=== PATIENT | female | born 1960 | race Caucasian/White ===

== ENCOUNTER 2022-12-16 07:29 | Outpatient (CLI) | payer BC, SELFPAY ==
[2022-12-16 08:00] LABS: Creatinine* 0.6 mg/dL (0.5-1.5); Estimated Glomerular Filt Rate 103 ml/min
--- NOTE | 2022-12-16 08:00 | CRLHL7_ITS ---
For Patients: As a result of the Century Cures Act, medical imaging exams and procedure reports are released immediately into your electronic medical record. You may view this report before your referring provider. If you have questions, please contact your health care provider. Indication: RIGHT LOWER ABDOMEN PAIN Technique: Postcontrast CT abdomen and pelvis. 86 cc Isovue 370 intravenous contrast. Oral water. Please note that all CT scans at this facility use dose modulation, iterative reconstruction, and/or weight-based dosing when appropriate to reduce radiation dose to as low as reasonably achievable. Comparison: None Findings: Lung bases are clear. No pleural effusion. There is fatty infiltration of the liver. Mildly prominent gastroesophageal junction lymph node is present measuring 9 millimeters. Mildly prominent upper retroperitoneal lymph nodes are also present, measuring 1 centimeter or less. The spleen is within normal limits without enlargement and measures 11.5 cm. There is some nodularity of the hepatic contour with diffuse low attenuation. There are 2 small hypodensities within the liver measuring 9 millimeters, series 6, image 30 and 6 millimeters, series 6, image 29. Mild ascites is present surrounding the liver extending along the right lateral conal fascia. Moderate pelvic ascites is present. There is no pelvic soft tissue mass. No mechanical bowel obstruction. No evidence of acute diverticulitis. The terminal ileum appears normal. The bladder is normal. Mild ascites also present within the anterior aspect of the left lower quadrant. The stomach is normal. No evidence of enteritis. No dilated small bowel loops. Adrenal glands normal. Normal kidneys. No hydronephrosis. Atherosclerotic disease. Degenerative disc disease L4-5. Facet degeneration L5-S1. No fracture. No gallstones are present. There is no biliary obstruction. Mild pericholecystic fluid. Impression: Cirrhotic liver with mild upper abdominal ascites and moderate pelvic ascites. Mild incidental fluid surrounds the gallbladder. No evidence of acute gallbladder disease. Numerous mildly prominent upper retroperitoneal lymph nodes extending to the GE junction consistent with reactive adenopathy. There are 2 small hypodensities within the liver which are likely benign but indeterminate in the setting of chronic liver disease and therefore dynamic pre and postcontrast MRI is recommended. Please note that all CT scans at this facility use dose modulation, iterative reconstruction, and/or weight-based dosing when appropriate to reduce radiation dose to as low as reasonably achievable. Dictated by Tien Stout MD @ 12/16/2022 11:48:37 AM (Electronically Signed)
== END 2022-12-16 07:30 | disposition home or self-care (01) ==
PROVIDERS: PCP Family Medicine; Visit Provider Internal Medicine
DX: R10.31 Right lower quadrant pain (principal); K74.60 Unspecified cirrhosis of liver; R18.8 Other ascites
CPT/HCPCS: 36415; 74177; 82565; Q9967

== ENCOUNTER 2022-12-19 15:47 | Outpatient (CLI) | payer BC, SELFPAY ==
[2022-12-19 17:41] LABS: Alanine Aminotransferase* 315 U/L (4-35); Alkaline Phosphatase* 216 U/L (40-150); Aspartate Amino Transferase* 666 U/L (12-35); Bilirubin Total* 3.4 mg/dL (0.1-1.5); Total Protein* 7.5 g/dL (6.0-8.3)
[2022-12-19 18:11] LABS: Hepatitis B Surface Antigen* Negative (Negative)
[2022-12-19 18:28] LABS: Hepatitis C Virus Antibody* Negative (Negative)
[2022-12-19 23:12] LABS: Hepatitis B Surface Antibody* Positive (Negative)
[2022-12-21 20:48] LABS: Ceruloplasmin 25 mg/dL (16-45); Hepatitis B Core Antibodies Negative (Negative)
[2022-12-22 16:53] LABS: Anti-Nuclear Ab(ANA)IgG ELISA Detected (None Detected)
[2022-12-24 01:03] LABS: ANA Pattern Homogeneous; Antinuclear AntibodyHEp-2 Detected (<1:80)
== END 2022-12-19 15:48 | disposition home or self-care (01) ==
PROVIDERS: PCP Family Medicine; Visit Provider Internal Medicine
DX: K74.60 Unspecified cirrhosis of liver (principal); R18.8 Other ascites
CPT/HCPCS: 80076; 82390; 83516; 86039; 86256; 86704; 86706; 86803; 87340

== ENCOUNTER 2023-01-01 07:03 | Outpatient (CLI) | payer BC, SELFPAY ==
--- NOTE | 2023-01-01 07:15 | CRLHL7_ITS ---
For Patients: As a result of the Century Cures Act, medical imaging exams and procedure reports are released immediately into your electronic medical record. You may view this report before your referring provider. If you have questions, please contact your health care provider. INDICATION: Cirrhosis and 2 small hypodense liver lesions on CT. TECHNIQUE: Multiplanar imaging of the abdomen was performed without and with 15 cc of Dotarem contrast material IV. COMPARISON: Abdomen/pelvis CT of 12/16/2022. Of FINDINGS: The liver is cirrhotic. No liver neoplasm is apparent. A 9 mm cyst is demonstrated in liver segment 4B and a 3 mm cyst is demonstrated in segment 3. These correspond to the low-attenuation lesions seen on CT. The portal vein is patent and demonstrates no filling defect. No portosystemic collateral vein is evident. The spleen is negative. A small amount of ascites is again demonstrated. The gallbladder is hydropic. No bile duct dilation is evident. The adrenal glands and pancreas are within normal limits. The kidneys are unremarkable except for an 8 mm left renal cyst. No lymphadenopathy is apparent. No intrinsic bowel abnormality is evident. IMPRESSION: 1. Cirrhotic liver without evidence of hepatocellular carcinoma. Two subcentimeter cysts noted. 2. Small volume ascites. Dictated by Branden Solo MD @ 01/02/2023 1:44:22 PM (Electronically Signed)
== END 2023-01-01 07:04 | disposition home or self-care (01) ==
LOC: MRI 07:04
PROVIDERS: PCP Family Medicine; Visit Provider Internal Medicine
DX: K74.60 Unspecified cirrhosis of liver (principal); K76.9 Liver disease, unspecified; R18.8 Other ascites; R16.0 Hepatomegaly, not elsewhere classified
CPT/HCPCS: 74183; A9575

== ENCOUNTER 2024-05-17 10:56 | Outpatient (CLI) | payer BC, SELFPAY ==
--- OUTSIDE RECORDS SUMMARY | 2024-05-17 10:58 | XMS_ITS | Encounter Summary ---
Author Organization [facility] Address [address] [place] [id number] Care Team Providers [place] [facility] Name Role Phone Unavailable Primary Care Provider Unavailabl e Reason for Referral * Outpatient (Routine) - Authorized Specialty Diagnoses / Procedures Referred By Contact Referred To Contact Gastroenterology and Hepatology Radha Gomez M.D. [address] [place] [address] [facility] Referral ID Status Reason Start Date Expiration Date V isits Requested Visits Authorized [id number] Authorized 04/01/2024 10/01/2025 1 1 * Outpatient (Routine) - Authorized Specialty Diagnoses / Procedures Referred By Contac t Referred To Contact Diagnoses Hepatitis Autoimmune (HCC) Procedures US Abdomen Complete Radha Gomez M.D. [address] [place] [address] [facility] Referral ID Status Reason Start Date Expiration Date V isits Requested Visits Authorized [id number] Authorized 04/01/2024 04/01/2025 1 1 * Outpatient (Routine) - Authorized Specialty Diagnoses / Procedures Referred By Contac t Referred To Contact Dermatology Diagnoses Hepatitis Autoimmune (HCC) Radha Gomez M.D. [address] [place] [phone] [facility] Referral ID Status Reason Start Date Expiration Date V isits Requested Visits Authorized [id number] Authorized 04/01/2024 10/01/2025 1 1 Reason for Visit * Outpatient (Routine) - Closed Specialty Diagnoses / Procedures Referred By Contact Referred To Contact Gastroenterology and Hepatology Radha Gomez M.D. [address] [place] [address] [facility] Referral ID Status Reason Start Date Expiration Date Visits Re quested Visits Authorized [id number] Closed 08/22/2023 08/21/2026 1 1 Encounter Details Date Type Department Care Team (Latest Contact Info) Description 04/01/2024 4:20 PM CDT Virtual Visit Division of Gastroenterology in [place], [place] [address] [place] [phone] Radha Gomez M.D. [address] [place] [phone] Hepatitis Autoimmune (HCC) (Primary Dx); Unspecified Cirrhosis Of Liver (HCC) Social History Tobacco Use Types Packs/Day Years Used Date Smoking Tobacco: Every Day Cigarettes 0.8 40 Started: 11/10/1979; Last attempted to quit: 11/10/2000 Passive Smoke Exposure: Current Smokeless Tobacco: Never Alcohol Use Standard Drinks/Week Comments Yes 8 (1 standard drink = 0.6 oz pur e alcohol) Humiliation, Afraid, Rape, and Kick questionnair e Answer Date Recorded Within the last year, have y ou been afraid of your partner or ex-partner? No 01/30/2023 Within the last year, have y ou been humiliated or emotionally abused in other ways by your partner or ex-partner? No Within the last year, have y ou been kicked, hit, slapped, or otherwise physically hurt by your partner or ex-partner? No 01/30/2023 Within the last year, have y ou been raped or forced to have any kind of sexual activity by your partner or ex-partner? No 01/30/2023 Social Connection and Isolation Panel [NHANES] A nswer Date Recorded In a typical week, how many times do you talk on the phone with family, friends, or neighbors? Three times a week 01/31/20 How often do you get togethe r with friends or relatives? Three times a week 01/30/2023 How often do you attend chur or presybeterian services? 1 to 4 times per year 01/30/2023 Do you belong to any clubs o r organizations such as voodoo groups, unions, fraternal or athletic groups, or school groups? No 01/30/2023 Attends Club or Organization Meetings Not on carter e 01/30/2023 Are you , , di vorced, , never , or living with a partner? 01/30/2023 AUDIT-C Answer Date Recorded Q1: How often do you have a drink containing alc ohol? 2-3 times a week 01/30/2023 Q2: How many drinks containi ng alcohol do you have on a typical day when you are drinking? 3 or 4 01/30/2023 Q3: How often do you have si x or more drinks on one occasion? Monthly 01/30/2023 Overall Financial Resource Strain (CARDIA) Answe r Date Recorded How hard is it for you to pa y for the very basics like food, housing, medical care, and heating? Not very hard 01/30/2023 [facility] - Occupational Stress Questionnaire Answer Date Recorded Do you feel stress - tense, restless, nervous, or anxious, or unable to sleep at night because your mind is troubled all the time - these days? Very much 01/30/2023 Exercise Vital Sign Answer Date Recorde d On average, how many days pe r week do you engage in moderate to strenuous exercise (like a brisk walk)? 1 day 01/30/2023 On average, how many minutes do you engage in exercise at this level? 20 min 01/30/2023 Hunger Vital Sign Answer Date Recorded Within the past 12 months, y ou worried that your food would run out before you got the money to buy more. Never true 01/31/20 Within the past 12 months, t he food you bought just didn't last and you didn't have money to get more. Never true 01/30/2023 PRAPARE - Transportation Answer Date Re corded In the past 12 months, has l ack of transportation kept you from medical appointments or from getting medications? No 01/09 In the past 12 months, has l ack of transportation kept you from meetings, work, or from getting things needed for daily living? No 01/30/2023 Housing Stability Vital Sign Answer Shashank e Recorded In the last 12 months, was t here a time when you were not able to pay the mortgage or rent on time? No 01/30/2023 In the last 12 months, how many places have you lived? 2 01/30/2023 In the last 12 months, was t here a time when you did not have a steady place to sleep or slept in a halfway (including now)? No 01/30/2023 Nutrition Answer Date Recorded Nutrition: EVOO Fat Source No 01/30 On average, how many serving s of fruits and vegetables do you eat per day (serving size is equal to 1 cup or approximately the size of a tennis ball)? 0-1 01/30/2023 Dental Answer Date Recorded Dental: Regular Dentist No 01/31/20 Employment Answer Date Recorded Employment status Retired 01/30/2023 Education Answer Date Recorded What is the highest level of school you have completed or the highest degree you have received? Associate degree: occupational, technical, or vocational program 01/30/2023 Sex and Gender Information Value Date Recorded Sex Assigned at Female 01/30/2023 1:08 PM CDT Gender Identity Female 01/30/2023 1:08 PM CDT Sexual Orientation Straight 01/30/2023 1: 08 PM CDT documented as of this encounter Progress Notes * Radha Gomez M.D. - 04/01/2024 4:20 PM CDT GASTROENTEROLOGY & HEPATOBILIARY CONSULT Chief Concern/Reason for Consult: Cirrhosis Referring Physician: Radha Gomez M.D. Supervised by: Ayden Dennison M.D., M.P.H SUBJECTIVE Consult conducted via real-time audio/video technology by Radha Gomez M.D. in [facility] to the patient in [facility]. Gloria Lincoln is a 64 y.o. female who returns for management of cirrhosis in the context of autoimmune hepatitis with possible ETOH use as a cofactor. She was titrated off prednisone in November 2023. She remains on azathioprine 50 mg daily as monotherapy. EGD on 05/01/2023 demonstrated grade 2 esophageal varices, portal hypertensive gastropathy, erosivegastropathy. She was initiated on carvedilol. Laboratory investigations from 03/31/2024 demonstrated AST 68, ALT 15. Alkaline phosphatase 82. Creatinine and electrolytes are within normal limits. CBC is normal. Laboratory investigations 04/18/2023 showed ALP 98, AST 62, ALT 33 and total bilirubin 0.8. Ultrasound of the liver without concerning hepatic observations. LI-RADS 1A. Today, Ms. Lincoln reports that she is feeling well without complaints. I have reviewed all laboratory values and diagnostics relevant to this consultation. 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 Gloria Lincoln is a 64 y.o. female who presents for follow-up of cirrhosis secondary to autoimmune hepatitis with EtOH as a cofactor. We discussed the following: Reviewed the results of her recent laboratory investigations. Which demonstrated in AST > ALT elevation at 2:1 pattern. I suspect this is less likely related to her autoimmune hepatitis and more likely related to ongoing EtOH use. Advised cessation. Reviewed the results of her abdominal ultrasound complete. This was negative for any concerning observations. I have recommended she continue HCC screening on a six-month basis with abdominal ultrasound complete and alpha fetoprotein. For esophageal varices, she will continue on carvedilol. For her autoimmune hepatitis directed therapy, she will continue on azathioprine 50 mg daily. Laboratory monitoring - we will repeat hepatic function and CBC in 3 months. If stable, we will space these checks out to every 6 months. I have advised that she continues to keep up-to-date on her immunizations with her PCP. Radha Gomez M.D. Gastroenterology & Hepatology Fellow Pager #[phone] Patient Education Ready to learn, no apparent learning barriers were identified; learning preferences include listening. Explained diagnosis and treatment plan; patient expressed understanding of the content. Administrative/Billing I spent 25 minutes face to face and non-face to face caring for the patient today. documented in this encounter Plan of Treatment Upcoming Encounters Date Type Department Care Team (Latest Contact Info) Description 06/23/2024 8:00 AM CDT Appointment Division of Gastroenterology in [place], [place] [address] [place] [address] Radha Gomez M.D. [address] [place] [address] 06/23/2024 2:15 PM CDT Comprehensive Visit Department of Dermatology in [place], [place] [address] [place] [address] Radha Gomez M.D. [address] [place] [address] Scheduled Orders Name Type Priority Associated Diagnoses Order Schedule CBC without Differential Lab Routine Hepatitis Autoimmune (HCC) Expected: 10/02/2024, Expires: 07/02/2025 Basic Metabolic Panel Lab Routine Hepatitis Autoimmune (HCC) Expected: 10/02/2024, Expires: 07/02/2025 Hepatic Function Panel Lab Routine Hepatitis Autoimmune (HCC) Expected: 10/02/2024, Expires: 07/02/2025 US Abdomen Complete Imaging RAD - Routin e (most inpatients and all outpatients) Hepatitis Autoimmune (HCC) Expected: 10/02/2024, Expires: 07/02/2025 AFP (Alpha-Fetoprotein), Tumor Marker Lab Routine Hepatitis Autoimmune (HCC) Expected: 10/02/2024, Expires: 07/02/2025 Scheduled Referrals Name Type Priority Associated Diagnoses Order Schedule Dermatology - Skin check consult (clinic) Outpatient Referral Routine Hepatitis Autoimmune (HCC) Expected: 04/01/2024, Expires: 07/02/2025 Gastroenterology and Hepatology office visit (clinic) Outpatient Referral Routine Expected: 10/02/2024, Expires: 07/02/2025 documented as of this encounter Visit Diagnoses Diagnosis Hepatitis Autoimmune (HCC)- Primary Unspecified Cirrhosis Of Liver (HCC) documented in this encounter
--- OUTSIDE RECORDS SUMMARY | 2024-05-17 10:58 | XMS_ITS | Clinical Summary ---
Author Organization [facility] Address [address] [place] [address] Care Team Providers Care Infirmary Attendant Name Role Phone Unavailable Primary Care Provider Unavailabl e Source Comments Patient records contain information from all sites at [facility]. For routine questions regarding patient records, call [phone] during business hours, M-F 8:00 AM - 5:00 PM Central Time. Record requests for emergency care only can be directed to [phone] at any time.[facility] Allergies No known active allergies Medications Medication Sig Dispensed Refills Start Date End Date Status aspirin [address] tablet Active cetirizine 10 mg capsule Active cholecalciferol, vitamin D3, (Vitamin D3) 10 mcg (400 unit) capsule Active omega 8-gik-gcb-fish oil (fish oil) 100-160-1,000 mg capsule Active venlafaxine XR (EFFEXOR-XR) 150 mg 24 hr capsule Active polyethylene glycol-electrolytes (GoLYTELY) 236-22.74-6.74 -5.86 gram solution Drink 1st portion of prep at 6 PM the evening before. 2nd portion must be started 3 hours before and finished 2 hours prior to report time 4000 mL 02/03/2023 Active pantoprazole (PROTONIX) 40 mg EC tablet Take 1 tablet (40 mg total) by mouth every morning before breakfast. 30 tablet 2 02/03/2023 Active traZODone (DESYREL) 50 mg tablet TAKE ONE TABLET BY MOUTH ONE TIME DAILY at bedtime as needed for insomnia.* 06/01/2023 Active doxycycline hyclate (VIBRAMYCIN) 100 mg capsule TAKE ONE CAPSULE BY MOUTH TWICE DAILY* 04/15/2023 Active azaTHIOprine (IMURAN) 50 mg tabletIndications:Cr ohn's Disease (HCC),Colitis Ulcerative (HCC) Take 1 tablet (50 mg total) by mouth daily. 90 tablet 3 10/30/2023 Active azaTHIOprine (IMURAN) 50 mg tabletIndications:Cr ohn's Disease (HCC),Colitis Ulcerative (HCC) Take 1 tablet (50 mg total) by mouth daily. 30 tablet 3 11/14/2023 Active carvediloL (COREG) 12.5 mg tablet Take 1 tablet (12.5 mg total) by mouth 2 (two) times a day with meals. 60 tablet 3 11/14/2023 Active thiamine (VITAMIN B1) 100 mg tabletIndications:Un specified Cirrhosis Of Liver (HCC),Ascites,Hepati tis Autoimmune (HCC) Take 1 tablet (100 mg total) by mouth daily. 30 tablet 3 11/14/2023 Active folic acid 1 mg tabletIndications:Un specified Cirrhosis Of Liver (HCC),Ascites,Hepati tis Autoimmune (HCC) take one tablet by mouth one time daily 30 tablet 04/06/2024 Active Encounters Date Type Department Care Team Description 04/04/2024 Refill Division of Gastroenterology in [place], [place] [address] [place] [phone] Radha Gomez M.D. Med Refill 04/01/2024 4:20 PM CDT Virtual Visit Division of Gastroenterology in [place], [place] [address] [place] [phone] Radha Gomez M.D. Hepatitis Autoimmune (HCC) (Primary Dx); Unspecified Cirrhosis Of Liver (HCC) 03/31/2024 4:17 PM CDT - 03/31/2024 11:59 PM CDT Hospital Encounter Department of Radiology, [facility] in [place], [place] [address] [place] [address] Radha Gomez M.D. Hepatitis Autoimmune (HCC); Unspecified Cirrhosis Of Liver (HCC) Discharge Disposition: Home or Self Care 03/31/2024 3:50 PM CDT - 03/31/2024 4:16 PM CDT Hospital Encounter Department of Laboratory Medicine and Pathology, [facility] in [place], [place] [address] [place] [address] Radha Gomez M.D. Hepatitis Autoimmune (HCC) Discharge Disposition: Home or Self Care 03/09/2024 Refill Division of Gastroenterology in [place], [place] [address] [place] [address] Radha Gomez M.D. Med Refill from Last 3 Months Family History Medical History Relation Name Comments ADD Daughter Alice Coronary artery disease Father Aleks Stroke Father Aleks Osteoporosis Mother Akosua Breast cancer Mother's Sister 1 Lue Rheum arthritis Mother's Sister 2 Lin S Stroke Paternal Grandfather Reynaldo ADD Son 1 Ken Lung cancer Son 1 Ken ADD Son 2 Claude Relation Name Status Comments Daughter Alice Father Aleks Mother Akosua Mother's Sister 1 Lue Mother's Sister 2 Lin S Paternal Grandfather Reynaldo Son 1 Ken Son 2 Claude Social History Tobacco Use Types Packs/Day Years Used Date Smoking Tobacco: Every Day Cigarettes 0.8 40 Started: 11/10/1979; Last attempted to quit: 11/10/2000 Passive Smoke Exposure: Current Smokeless Tobacco: Never Tobacco Cessation:Ready to Q uit: Not Asked; Counseling Given: Not Answered Alcohol Use Standard Drinks/Week Comments Yes 8 [...] 01/30/2023 How often do you attend chur ch or confucianist services? 1 to 4 times per year 01/30/2023 Do you belong to any clubs o r organizations such as taoist groups, unions, fraternal or athletic groups, or [...] care, and heating? Not very hard 01/30/2023 [facility] of Occupat ional Health - Occupational Stress [...] place to sleep or slept in a custodial (including now)? No 01/30/2023 Nutrition Answer Date [...] Orientation Straight 01/30/2023 1: 08 PM CDT Last Filed Vital Signs Vital Sign Reading Time Taken Comments Blood Pressure 117/76 05/01/2023 9:45 AM CDT Pulse 75 05/01/2023 9:45 AM CDT Temperature 36.4 ??C (97.6 ??F) 05/01/2023 9:21 AM CD T Respiratory Rate 14 05/01/2023 9:45 AM CDT Oxygen Saturation 92% 05/01/2023 9:45 AM CDT Inhaled Oxygen Concentration - - Weight 72.6 kg (160 lb) 05/01/2023 6:56 AM CDT Height 167.6 cm (5' 5.98) 05/01/2023 6:56 AM CD T Body Mass Index 25.84 05/01/2023 6:56 AM CDT Plan of Treatment Upcoming Encounters Date Type Department Care Team (Latest Contact Info) Description 06/23/2024 8:00 AM CDT Appointment Division of Gastroenterology in [place], [place] [address] [place] [address] Radha Gomez M.D. 200 [place] [phone] 06/23/2024 2:15 PM CDT Comprehensive Visit Department of Dermatology in [place], [place] [address] [place] [phone] Radha Gomez M.D. [address] [place] [phone] Health Maintenance Due Date Last Done Comments CT Colonography 1962 Cologuard 1962 Hepatitis C Screening 1962 Lipid (Cholesterol) Screening 1962 Lung Cancer Screening 1962 Tobacco Cessation counseling 1962 COVID-19 Vaccine (#1) 1967 Pneumococcal vaccine (0-64 years) (1 of 2 - PCV) 01/24/1968 Zoster Vaccines (1 of 2) 1981 Mammogram 09/15/2002 09/15/2001 DTaP,Tdap,and Td Vaccines (2 - Td or Tdap) 04/05/2020 04/05/2010, 07/17/2004 Depression Screening (Annual PHQ-2) 11/10/2023 Influenza Vaccine (#1) 2024 8, 09/15/2018, 09/17/2017, Additional history exists Fasting Glucose for Diabetes Screening 03/31/2027 03/31/2024, 06/23/2023, 04/18/2023, Additional history exists Colonoscopy 05/01/2028 05/01/2023, 05/01/2023 Colorectal Cancer Surveillance 05/01/2028 HPV Vaccines Aged Out No longer eligi ble based on patient's age to complete this topic Procedures Procedure Name Priority Date/Time Associated Diagnosis Comments US ABDOMEN COMPLETE RAD - Routine (most inpatients and all outpatients) 03/31/2024 4:59 PM CDT Hepatitis Autoimmune (HCC) Unspecified Cirrhosis Of Liver (HCC) COMPREHENSIVE METABOLIC PANEL, S/P Routine 03/31/2024 4:10 PM CDT Hepatitis Autoimmune (HCC) CBC WITHOUT DIFFERENTIAL, B Routine 03/31/2024 4:10 PM CDT Hepatitis Autoimmune (HCC) HEPATIC FUNCTION PANEL, S Routine 03/31/2024 4:10 PM CDT Hepatitis Autoimmune (HCC) COLONOSCOPY Routine 05/01/2023 7:41 AM CDT Unspecified Cirrhosis Of Liver (HCC) BI BREAST SCREENING BILATERAL Routine 09/15/2001 12:00 AM CUTTER FIRST from Last 3 Months or Most Recently Relevant to Health Maintenance Results * US Abdomen Complete (03/31/2024 4:59 PM CDT) Anatomical Region Laterality Modality Abdomen, Ultrasound RST LOS, Ultrasound ARZ LOS, Ultrasound FLA LOS N/A Ultrasound Impressions 03/31/2024 5:35 PM CDT Stable exam. Coarsened hepatic echotexture consistent with chronic parenchymal disease. No concerning focal hepatic observations. LI-RADS 1A. Narrative 03/31/2024 5:35 PM CDT EXAM: US ABDOMEN COMPLETE COMPARISON: Ultrasound 08/21/2023, CT abdomen/pelvis to 04/29/2023. FINDINGS: Liver: Coarsened echotexture and slightly nodular contour consistent with chronic parenchymal disease. 5 mm left hepatic lobe cyst, unchanged. No concerning focal hepatic observations. Gallbladder: Sludge and/or tiny stones, similar to ultrasound 08/21/2023.. Otherwise normal gallbladder. Intrahepatic ducts: Not dilated. Common duct: Not dilated. Pancreas: Normal where seen. Right kidney: Length: 9.5 cm. Normal echogenicity. No hydronephrosis. Left kidney: Length: 9.6 cm. Normal echogenicity. No hydronephrosis. Spleen: Normal. ??Spleen length: 9.8 cm. Aorta: Normal caliber. IVC: Normal where seen. Ascites: ??None. Ultrasound LI-RADS score is as follows: Ultrasound Category: US-1: ??Negative (No US evidence of HCC). ??Recommend continued routine surveillance. Visualization Score: A: ??Normal or minimal limitations (limitations, if any, are unlikely to meaningfully affect sensitivity). Ultrasound LI-RADS is a standardized system for imaging technique, interpretation, reporting, and data collection for screening or surveillance ultrasound exams in patients at risk for developing HCC. Ultrasound LI-RADS is supported and endorsed by the [employer] [place]. More information can be found on the following link https://www.acr.org/Clinical-Resources/Prsyyoywq-ars-Jbgp-Systems/LI-RADS/LI-RAD S-Ult rasound-v2017 Procedure Note Joel Benavidez M.D. - 03/31/2024 EXAM: US ABDOMEN COMPLETE COMPARISON: Ultrasound 08/21/2023, CT abdomen/pelvis to 04/29/2023. FINDINGS: Liver: Coarsened echotexture and slightly nodular contour consistent withchronic parenchymal disease. 5 mm left hepatic lobe cyst, unchanged. Noconcerning focal hepatic observations. Gallbladder: Sludge and/or tiny stones, similar to ultrasound 08/21/2023..Otherwise normal gallbladder. Intrahepatic ducts: Not dilated. Common duct: Not dilated. Pancreas: Normal where seen. Right kidney: Length: 9.5 cm. Normal echogenicity. No hydronephrosis. Left kidney: Length: 9.6 cm. Normal echogenicity. No hydronephrosis. Spleen: Normal. Spleen length: 9.8 cm. Aorta: Normal caliber. IVC: Normal where seen. Ascites: None. Ultrasound LI-RADS score is as follows: Ultrasound Category: US-1: Negative (No US evidence of HCC). Recommendcontinued routine surveillance. Visualization Score: A: Normal or minimal limitations (limitations, ifany, are unlikely to meaningfully affect sensitivity). Ultrasound LI-RADS is a standardized system for imaging technique,interpretation, reporting, and data collection for screening orsurveillance ultrasound exams in patients at risk for developing HCC.Ultrasound LI-RADS is supported and endorsed by the [place]. More information can be found on thefollowing linkhttps://www.acr.org/Clinical-Resources/Bttvlvzif-jgu-Ecik-Systems/LI-RADS/LI -RADS -Ultrasound-v2017 IMPRESSION: Stable exam. Coarsened hepatic echotexture consistent with chronicparenchymal disease. No concerning focal hepatic observations. LI-RADS1A. Radha Gomez M.D. [facility] [place] US PROCEDUR ES * (ABNORMAL) Hepatic Function Panel (03/31/2024 4:10 PM CDT) Bilirubin, Total, S 0.6 0.0 - 1.2 mg/dL 03/31/2024 5:13 PM CDT DTL Bilirubin, Direct, S <0.2 0.0 - 0.3 mg/dL 03/31/2024 5:13 PM CDT DTL Aspartate Aminotransferase (AST), S 68(H) 8 - 43 U/L 03/31/2024 5:13 PM CDT DTL Alanine Aminotransferase (ALT), S 15 7 - 45 U/L 03/31/2024 5:13 PM CDT DTL Alkaline Phosphatase, S 82 35 - 104 U/L 03/31/2024 5:13 PM CDT DTL Albumin, S 4.5 3.5 - 5.0 g/dL 03/31/2024 5:13 PM CDT DTL Protein, Total, S 6.7 6.3 - 7.9 g/dL 03/31/2024 5:13 PM CDT DTL Blood (Blood, Venous) 03/31/2024 4:10 PM CDT 03/31/2024 4:51 PM CDT Radha Gomez M.D. LAB BLOOD ADD-O N [facility] [address] [place] [address], [facility] [address] [place] [address] * (ABNORMAL) CBC without Differential (03/31/2024 4:10 PM CDT) Hemoglobin 15.1(H) 11.6 - 15.0 g/dL 03/31/2024 4:44 PM CDT DTL Hematocrit 44.6 35.5 - 44.9 % 03/31/2024 4:44 PM CDT DTL Erythrocytes 4.33 3.92 - 5.13 x10(12)/L 03/31/2024 4:44 PM CDT DTL MCV 103.0(H) 78.2 - 97.9 fL 03/31/2024 4:44 PM CDT DTL RBC Distrib Width 11.1(L) 12.2 - 16.1 % 03/31/2024 4:44 PM CDT DTL Platelet Count 262 157 - 371 x10(9)/L 03/31/2024 4:44 PM CDT DTL Leukocytes 6.9 3.4 - 9.6 x10(9)/L 03/31/2024 4:44 PM CDT DTL Blood (Blood, Venous) 03/31/2024 4:10 PM CDT 03/31/2024 4:37 PM CDT Radha Gomez M.D. LAB BLOOD ADD-O N [facility] [address] [facility] [address] [place] [address] * (ABNORMAL) Comprehensive Metabolic Panel (03/31/2024 4:10 PM CDT) Pathologist [facility] Potassium, S 4.7 3.6 - 5.2 mmol/L 03/31/2024 5:13 PM CDT DTL Sodium, S 138 135 - 145 mmol/L 03/31/2024 5:13 PM CDT DTL Chloride, S 100 98 - 107 mmol/L 03/31/2024 5:13 PM CDT DTL Bicarbonate, S 28 22 - 29 mmol/L 03/31/2024 5:13 PM CDT DTL Anion Gap 10 7 - 15 03/31/2024 5:13 PM CDT DTL BUN (Blood Urea Nitrogen), S 12 6 - 21 mg/dL 03/31/2024 5:13 PM CDT DTL Creatinine 0.88 0.59 - 1.04 mg/dL 03/31/2024 5:13 PM CDT DTL Estimated GFR (eGFR) 74 >=60 mL/min/BS A 03/31/2024 5:13 PM CDT DTL Comment: Estimated GFR calculated using the 2020 CKD_EPI creatinine equation. Calcium, Total, S 10.0 8.8 - 10.2 mg/dL 03/31/2024 5:13 PM CDT DTL Glucose, S 142(H) 70 - 140 mg/dL 03/31/2024 5:13 PM CDT DTL Protein, Total, S 6.7 6.3 - 7.9 g/dL 03/31/2024 5:13 PM CDT DTL Albumin, S 4.5 3.5 - 5.0 g/dL 03/31/2024 5:13 PM CDT DTL Aspartate Aminotransferase (AST), S 68(H) 8 - 43 U/L 03/31/2024 5:13 PM CDT DTL Alkaline Phosphatase, S 82 35 - 104 U/L 03/31/2024 5:13 PM CDT DTL Alanine Aminotransferase (ALT), S 15 7 - 45 U/L 03/31/2024 5:13 PM CDT DTL Bilirubin, Total, S 0.6 0.0 - 1.2 mg/dL 03/31/2024 5:13 PM CDT DTL Blood (Blood, Venous) 03/31/2024 4:10 PM CDT 03/31/2024 4:51 PM CDT Radha Gomez M.D. [place] [address], [facility] DTL Formerly named [facility] [address] [place] [address] * BI Breast Screening Bilateral (09/15/2001 12:00 AM CUTTER FIRST) Anatomical Region Laterality Modality Breast Bilateral Mammography 09/15/2001 Narrative 09/15/2001 12:00 AM CUTTER FIRST 15-Sep-2001 00:00:00 ??Exam: Mammo Screen Bilat Indications: ?? ORIGINAL REPORT - 15-Sep-2001 00:00:00 This [facility] ([facility]) exam was historically loaded. *-*-*-*-* SEE SCANNED REPORT *-*-*-*-* [facility] X-RAY REPORT Electronically signed by: ?? Tutu Reagan MD 15-Sep-2001 00:00 Procedure Note Provider, Historical - 02/13/2018 15-Sep-2001 00:00:00 Exam: Mammo Screen Bilat Indications: ORIGINAL REPORT - 15-Sep-2001 00:00:00 This [facility] ([facility]) exam was historically loaded. *-*-*-*-* SEE SCANNED REPORT *-*-*-*-* [facility] X-RAY REPORT Electronically signed by: uTtu Reagan MD 15-Sep-2001 00:00 Historical Provider IMG BI PROCEDURES from Last 3 Months or Most Recently Relevant to Health Maintenance
--- OUTSIDE RECORDS SUMMARY | 2024-05-17 10:58 | XMS_ITS | Encounter Summary ---
Author Organization [facility] Address [address] [place] [address] Care Team Providers Care Textile Stylist Name Role Phone Unavailable Primary Care Provider Unavailabl e Reason for Visit * Reason Comments Med Refill Encounter Details Date Type Department Care Team ([facility] st Contact Info) Description 04/04/2024 Refill Division of Gastroenterology in [place], [place] [address] [place] [phone] Radha Gomez M.D. [address] [place] [address] Med Refill Social History Tobacco Use Types Packs/Day Years [...] How often do you attend chur or christian services? 1 to 4 times per year [...] care, and heating? Not very hard 01/30/2023 [facility] of Occupat ional Health - Occupational Stress [...] place to sleep or slept in a longterm (including now)? No 01/30/2023 Nutrition Answer Date [...] PM CDT documented as of this encounter Plan of Treatment Upcoming Encounters Date Type Department Care Team (Latest Contact Info) Description 06/23/2024 8:00 AM CDT Appointment Division of Gastroenterology in [place], [place] [address] [place] [phone] Radha Gomez M.D. 200 [place] [address] 06/23/2024 2:15 PM CDT Comprehensive Visit Department of Dermatology in [place], [place] [address] [place] [address] Radha Gomez M.D. [address] [place] [phone] documented as of this encounter Visit Diagnoses Diagnosis Unspecified Cirrhosis Of Liver (HCC) Ascites Hepatitis Autoimmune (HCC) documented in this encounter
--- OUTSIDE RECORDS SUMMARY | 2024-05-17 10:58 | XMS_ITS ---
Author Organization [facility] Address [address] [place] [address] Care Team Providers Care Enamel Machine Operator Name Role Phone Unavailable Unavailable Unavailable Surgery Details Not on file Complications Check Surgery Details section. Procedure Estimated Blood Loss Check Surgery Details section. Procedure Findings Check Surgery Details section. Procedure Specimens Taken Check Surgery Details section.
--- OUTSIDE RECORDS SUMMARY | 2024-05-17 10:58 | XMS_ITS | Referral Summary ---
Author Organization [facility] Address [address] [place] [address] Care Team Providers Care Child Specialist Name Role Phone Unavailable Primary Care Provider Unavailabl e Source Comments Patient records contain information from all sites at [facility]. For routine questions regarding patient records, call [phone] during business hours, M-F 8:00 AM - 5:00 PM Central Time. Record requests for emergency care only can be directed to [phone] at any time.[facility] Encounters Date Type Department Care Team Description 04/04/2024 Refill Division of Gastroenterology in [place], [place] [address] [place] [phone] Radha Gomez M.D. Med Refill 04/01/2024 4:20 PM CDT Virtual Visit Division of Gastroenterology in [place], [place] [address] [place] [phone] Radha Gomez M.D. Hepatitis Autoimmune (HCC) (Primary Dx); Unspecified Cirrhosis Of Liver (HCC) 03/31/2024 3:50 PM CDT - 03/31/2024 4:16 PM CDT Hospital Encounter Department of Laboratory Medicine and Pathology, [facility] in [place], [place] [address] [place] [phone] Radha Gomez M.D. Hepatitis Autoimmune (HCC) Discharge Disposition: Home or Self Care 03/31/2024 4:17 PM CDT - 03/31/2024 11:59 PM CDT Hospital Encounter Department of Radiology, [facility] in [place], [place] [address] [place] [address] Radha Gomez M.D. Hepatitis Autoimmune (HCC); Unspecified Cirrhosis Of Liver (HCC) Discharge Disposition: Home or Self Care 03/09/2024 Refill Division of Gastroenterology in [place], [place] [address] [place] [address] Radha Gomez M.D. Med Refill from Last 3 Months Allergies No known active allergies Medications Medication Sig Dispensed Refills Start Date End Date Status aspirin [address] tablet Active cetirizine 10 mg capsule Active cholecalciferol, vitamin D3, (Vitamin D3) 10 mcg (400 unit) capsule Active omega 8-vyi-hhw-fish oil (fish oil) 100-160-1,000 mg capsule Active [...] one time daily 30 tablet 04/06/2024 Active Social History Tobacco Use Types Packs/Day Years [...] often do you attend chur ch or denominational services? 1 to 4 times per year 01/30/2023 Do you belong to any clubs o r organizations such as congregation groups, unions, fraternal or athletic groups, or [...] care, and heating? Not very hard 01/30/2023 [facility] of Occupat ional Health - Occupational Stress [...] place to sleep or slept in a prison (including now)? No 01/30/2023 Nutrition Answer Date [...] AM CDT Appointment Division of Gastroenterology in [place], [place] [address] [place] [phone] Radha Gomez M.D. [address] [place] [phone] 06/23/2024 2:15 PM CDT Comprehensive Visit Department of Dermatology in [place], [place] [address] [place] [phone] Radha Gomez M.D. [address] [place] [address] Procedures Procedure Name Priority Date/Time Associated Diagnosis [...] BREAST SCREENING BILATERAL Routine 09/15/2001 12:00 AM SILVERWARE BUFFING MACHINE OPERATOR from Last 3 Months or Most Recently [...] LI-RADS is supported and endorsed by the [employer]. More information can be found on the following link https://www.acr.org/Clinical-Resources/Xrjuvagwv-chq-Jebm-Systems/LI-RADS/LI-RAD S-Ult rasound-v2017 Procedure Note Joel Benavidez M.D. [...] LI-RADS is supported and endorsed by the [place] [employer]. More information can be found on thefollowing linkhttps://www.acr.org/Clinical-Resources/Latlkomnd-zsh-Wxdh-Systems/LI-RADS/LI -RADS -Ultrasound-v2017 IMPRESSION: Stable exam. Coarsened hepatic echotexture consistent with chronicparenchymal disease. No concerning focal hepatic observations. LI-RADS1A. Radha Gomez M.D. G US PROCEDUR ES * (ABNORMAL) Hepatic Function [...] PM CDT 03/31/2024 4:51 PM CDT Radha oGmez M.D. LAB [facility]LO[facility] [address] [place] [address], [facility] DTL [facility] [address] [place] [address] * (ABNORMAL) CBC without Differential (03/31/2024 4:10 [...] Radha Gomez M.D. LAB BLOOD ADD-O N [facility] [address] [place] [address], [facility] DTL [facility] [address] [place] [address] * (ABNORMAL) Comprehensive Metabolic Panel (03/31/2024 4:10 PM CDT) Potassium, S 4.7 3.6 - 5.2 mmol/L [...] Radha Gomez M.D. LAB BLOOD ADD-O N [facility] [address] [place] [address], [facility] DTL [facility] [address] [place] [address] * BI Breast Screening Bilateral (09/15/2001 12:00 AM SILVERWARE BUFFING MACHINE OPERATOR) Anatomical Region Laterality Modality Breast Bilateral Mammography 09/15/2001 Narrative 09/15/2001 12:00 AM SILVERWARE BUFFING MACHINE OPERATOR 15-Sep-2001 00:00:00 ??Exam: Mammo Screen Bilat Indications: ?? ORIGINAL REPORT - 15-Sep-2001 00:00:00 This [facility] ([facility]) exam was historically loaded. *-*-*-*-* SEE SCANNED REPORT *-*-*-*-* [facility] X-RAY REPORT Electronically signed by: ?? Tutu Reagan MD 15-Sep-2001 00:00 Procedure Note Provider, Historical - 02/13/2018 15-Sep-2001 00:00:00 Exam: Mammo Screen Bilat Indications: ORIGINAL REPORT - 15-Sep-2001 00:00:00 This [facility] ([facility]) exam was historically loaded. *-*-*-*-* SEE SCANNED REPORT *-*-*-*-* [facility] X-RAY REPORT Electronically signed by: Tutu Reagan MD 15-Sep-2001 00:00 Historical Provider IMG BI PROCEDURES from Last 3 Months or Most Recently Relevant to Health Maintenance
--- OUTSIDE RECORDS SUMMARY | 2024-05-17 10:58 | XMS_ITS | Encounter Summary ---
Author Organization [facility] Address [address] [place] [address] Care Team Providers Care Rug Layer Name Role Phone Unavailable Primary Care Provider Unavailabl e Encounter Details Date Type Department Care Team (Latest Contact Info) Description 03/31/2024 3:50 PM CDT - 03/31/2024 4:16 PM CDT Hospital Encounter Department of Laboratory Medicine and Pathology, [facility], in [place], [place] [address] [place] [address] Radha Gomez M.D. [address] [place] [phone] Hepatitis Autoimmune (HCC) Discharge Disposition: Home or Self Care Social History Tobacco Use Types Packs/Day Years [...] week 01/30/2023 How often do you attend [facility] or anglican services? 1 to 4 times per year 01/30/2023 Do you belong to any clubs o r organizations such as buddhist groups, unions, fraternal or athletic groups, or [...] care, and heating? Not very hard 01/30/2023 [facility] - Occupational Stress [...] place to sleep or slept in a group home (including now)? No 01/30/2023 Nutrition Answer Date [...] PM CDT documented as of this encounter Medications at Time of Discharge Medication Sig Dispensed Refills Start Date End Date aspirin [address] tablet azaTHIOprine (IMURAN) 50 mg tabletIndications:Crohn 's Disease (HCC),Colitis Ulcerative (HCC) Take 1 tablet (50 mg total) by mouth daily. 90 tablet 3 10/30/2023 azaTHIOprine (IMURAN) 50 mg tabletIndications:Crohn 's Disease (HCC),Colitis Ulcerative (HCC) Take 1 tablet (50 mg total) by mouth daily. 30 tablet 3 11/14/2023 carvediloL (COREG) 12.5 mg tablet Take 1 tablet (12.5 mg total) by mouth 2 (two) times a day with meals. 60 tablet 3 11/14/2023 cetirizine 10 mg capsule cholecalciferol, vitamin D3, (Vitamin D3) 10 mcg (400 unit) capsule doxycycline hyclate (VIBRAMYCIN) 100 mg capsule TAKE ONE CAPSULE BY MOUTH TWICE DAILY* 04/15/2023 omega 4-zhx-qph-fish oil (fish oil) 100-160-1,000 mg capsule pantoprazole (PROTONIX) 40 mg EC tablet Take 1 tablet (40 mg total) by mouth every morning before breakfast. 30 tablet 2 02/03/2023 polyethylene glycol-electrolytes (GoLYTELY) 236-22.74-6.74 -5.86 gram solution Drink 1st portion of prep at 6 PM the evening before. 2nd portion must be started 3 hours before and finished 2 hours prior to report time 4000 mL 02/03/2023 thiamine (VITAMIN B1) 100 mg tabletIndications:Unspe cified Cirrhosis Of Liver (HCC),Ascites,Hepatitis Autoimmune (HCC) Take 1 tablet (100 mg total) by mouth daily. 30 tablet 3 11/14/2023 traZODone (DESYREL) 50 mg tablet TAKE ONE TABLET BY MOUTH ONE TIME DAILY at bedtime as needed for insomnia.* 06/01/2023 venlafaxine XR (EFFEXOR-XR) 150 mg 24 hr capsule folic acid 1 mg tabletIndications:Unspe cified Cirrhosis Of Liver (HCC),Ascites,Hepatitis Autoimmune (HCC) take one tablet by mouth one time daily 30 tablet 03/09/2024 04/06/2024 documented as of this encounter Plan of Treatment Upcoming Encounters Date Type Department Care Team (Latest Contact Info) Description 06/23/2024 8:00 AM CDT Appointment Division of Gastroenterology in [place], [place] 200 [place] [address] Radha Gomez M.D. 200 [place] [address] 06/23/2024 2:15 PM CDT Comprehensive Visit Department of Dermatology in [place], [place] [address] [place] [address] Radha Gomez M.D. [address] [place] [phone] documented as of this encounter Procedures Procedure Name Priority Date/Time Associated Diagnosis Comments HEPATIC FUNCTION PANEL, S Routine 03/31/2024 4:10 PM CDT Hepatitis Autoimmune (HCC) CBC WITHOUT DIFFERENTIAL, B Routine 03/31/2024 4:10 PM CDT Hepatitis Autoimmune (HCC) COMPREHENSIVE METABOLIC PANEL, S/P Routine 03/31/2024 4:10 PM CDT Hepatitis Autoimmune (HCC) documented in this encounter Results * (ABNORMAL) Comprehensive Metabolic Panel (03/31/2024 4:10 [...] Radha Gomez M.D. LAB BLOOD ADD-O N [address] [address], [facility] [address] [address] * (ABNORMAL) CBC without Differential (03/31/2024 4:10 [...] Radha Gomez M.D. LAB BLOOD ADD-O N Performing Organization Address City/[facility]/ZIP Co de Phone Number [facility] 200 [place] [address], [facility] DTL [facility] [address] [place] [address] * (ABNORMAL) Hepatic Function Panel (03/31/2024 4:10 [...] Radha Gomez M.D. LAB BLOOD ADD-O N Performing Organization Address City/[facility]/ZIP Co de Phone Number [facility] 200 [place], [place] [address] DTL [facility] [address] [place] [address] documented in this encounter Visit Diagnoses Diagnosis Hepatitis Autoimmune (HCC) documented in this encounter
--- OUTSIDE RECORDS SUMMARY | 2024-05-17 10:59 | XMS_ITS | Encounter Summary ---
Author Organization [facility] Address [address] [place] [address] Care Team Providers Care Servomechanism Designer Name Role Phone Unavailable Primary Care Provider Unavailabl e Reason for Visit * Reason Comments Med Refill Encounter Details Date Type Department Care Team ([facility] st Contact Info) Description 03/09/2024 Refill Division of Gastroenterology in [place], [place] [address] [place] [phone] Radha Gomez M.D. [address] [place] [address] Med Refill Social History Tobacco Use Types [...] How often do you attend chur or rastafari services? 1 to 4 times per year 01/30/2023 Do you belong to any clubs o r organizations such as orthodoxy groups, unions, fraternal or athletic groups, or [...] care, and heating? Not very hard 01/30/2023 [facility] - [...] place to sleep or slept in a half-way (including now)? No 01/30/2023 Nutrition Answer Date [...] AM CDT Appointment Division of Gastroenterology in [place], [place] [address] [place] [phone] Radha Gomez M.D. 200 [place] [address] 06/23/2024 2:15 PM CDT Comprehensive Visit Department of Dermatology in [place], [place] [address] [place] [address] Radha Gomez M.D. [address] [place] [phone] documented as of this encounter Visit Diagnoses Diagnosis Unspecified Cirrhosis Of Liver (HCC) Ascites Hepatitis Autoimmune (HCC) documented in this encounter
--- OUTSIDE RECORDS SUMMARY | 2024-05-17 10:59 | XMS_ITS | Encounter Summary ---
Author Organization [facility] Address [address] [place] [address] Care Team Providers Care Needle Bar Molder Name Role Phone Unavailable Primary Care Provider Unavailabl e Reason for Referral * Outpatient (Routine) - Closed Specialty Diagnoses / Procedures Referred By Contac t Referred To Contact Diagnoses Hepatitis Autoimmune (HCC) Unspecified Cirrhosis Of Liver (HCC) Procedures US Abdomen Complete Radha Gomez M.D. [address] [place] [phone] [facility] Referral ID Status Reason Start Date Expiration Date Visits Re quested Visits Authorized [id number] Closed 08/25/2023 08/24/2024 1 1 Reason for Visit * Outpatient (Routine) - Closed Specialty Diagnoses / Procedures Referred By Contac t Referred To Contact Diagnoses Hepatitis Autoimmune (HCC) Unspecified Cirrhosis Of Liver (HCC) Procedures US Abdomen Complete Radha Gomez M.D. [address] [place] [phone] [facility] Referral ID Status Reason Start Date Expiration Date Visits Re quested Visits Authorized [id number] Closed 08/25/2023 08/24/2024 1 1 Encounter Details Date Type Department Care Team (Latest Contact Info) Description 03/31/2024 4:17 PM CDT - 03/31/2024 11:59 PM CDT Hospital Encounter Department of Radiology, [facility], in [place], [place] [address] [place] [address] Radha Gomez M.D. [address] [place] [address] Hepatitis Autoimmune (HCC); Unspecified Cirrhosis Of Liver [...] week 01/30/2023 How often do you attend [facility] or shinto services? 1 to 4 times per year 01/30/2023 Do you belong to any clubs o r organizations such as moravian groups, unions, fraternal or athletic groups, or [...] care, and heating? Not very hard 01/30/2023 [facility] - Occupational Stress Questionnaire Answer Date Recorded [...] place to sleep or slept in a [facility] (including now)? No 01/30/2023 Nutrition Answer Date [...] CAPSULE BY MOUTH TWICE DAILY* 04/15/2023 omega 6-lzi-lpq-fish oil (fish oil) 100-160-1,000 mg capsule pantoprazole [...] AM CDT Appointment Division of Gastroenterology in [place], [place] [address] [place] [address] Radha Gomez M.D. [address] [place] [phone] 06/23/2024 2:15 PM CDT Comprehensive Visit Department of Dermatology in [place], [place] [address] [place] [address] Radha Gomez M.D. [address] [place] [phone] documented as of this encounter Procedures Procedure Name Priority Date/Time Associated Diagnosis Comments US ABDOMEN COMPLETE RAD - Routine (most inpatients and all outpatients) 03/31/2024 4:59 PM CDT Hepatitis Autoimmune (HCC) Unspecified Cirrhosis Of Liver (HCC) documented in this encounter Results * US Abdomen Complete (03/31/2024 4:59 [...] LI-RADS is supported and endorsed by the [employer]. More information can be found on the following link https://www.acr.org/Clinical-Resources/Cnhauowlp-eey-Avdh-Systems/LI-RADS/LI-RAD S-Ult rasound-[email or web address] Procedure Note Jole Benavidez M.D. - 03/31/2024 EXAM: US ABDOMEN [...] LI-RADS is supported and endorsed by the [employer]. More information can be found on thefollowing [email or web address].acr.org/Clinical-Resources/Tiptsoyhe-geb-Byoz-Systems/LI-RADS/LI -RADS -Ultrasound-v2017 IMPRESSION: Stable exam. Coarsened hepatic echotexture consistent with chronicparenchymal disease. No concerning focal hepatic observations. LI-RADS1A. Radha MEADOWS US PROCEDUR ES documented in this encounter Visit Diagnoses Diagnosis Hepatitis Autoimmune (HCC) Unspecified Cirrhosis Of Liver (HCC) documented in this encounter
--- NOTE | 2024-05-17 11:00 | CRLHL7_ITS ---
For Patients: As a result of the Cures Act, medical imaging exams and procedure reports are released immediately into your electronic medical record. You may view this report before your referring provider. If you have questions, please contact your health care provider. INDICATION: Lung cancer screening. History of smoking. High risk patient with greater than 20 pack-year smoking history. TECHNIQUE: Low-dose lung cancer screening non-contrast CT chest. Dose reduction techniques were used. COMPARISON: None. FINDINGS: NODULES: None. LUNGS AND PLEURA: Normal. MEDIASTINUM: Normal. CORONARY ARTERY CALCIFICATION: Present LIMITED UPPER ABDOMEN: Normal. MUSCULOSKELETAL: Chronic lateral right 10th rib fracture deformity. IMPRESSION: 1. Negative for lung cancer screening purposes. LUNG-RADS CATEGORY 1: Negative. Continue annual screening with low-dose CT chest in 12 months. Please note that all CT scans at this facility use dose modulation, iterative reconstruction, and/or weight-based dosing when appropriate to reduce radiation dose to as low as reasonably achievable. Dictated by Thierry Leigh MD @ 05/18/2024 11:38:54 AM (Electronically Signed)
[2024-05-17 11:24] LABS: Creatinine* 0.7 mg/dL (0.5-1.5); Estimated Glomerular Filt Rate 98 ml/min
--- NOTE | 2024-05-17 11:30 | CRLHL7_ITS ---
For Patients: As a result of the Cures Act, medical imaging exams and procedure reports are released immediately into your electronic medical record. You may view this report before your referring provider. If you have questions, please contact your health care provider. INDICATION: Malignancy, screening. Comparison none. TECHNIQUE: CT soft tissue neck with IV contrast. FINDINGS: Normal bilateral parotid and submandibular glands. Normal thyroid gland. No enlarged cervical lymph nodes bilaterally. No supraclavicular or superior mediastinal adenopathy. Nasopharynx and oropharynx are clear. No inflammation within the parapharyngeal fat pads or retropharyngeal space. Normal thickness of the epiglottis. Normal glottis with symmetric vocal cords. Lung apices are clear. Normal alignment of cervical spine. Cervical spondylosis. No prevertebral soft tissue swelling. Moderate mucosal thickening of the right maxillary sinus. Remaining visualized paranasal sinuses and mastoid air cells are clear. IMPRESSION: 1. No adenopathy. 2. Normal deep soft tissues of the neck. 3. Cervical spondylosis Please note that all CT scans at this facility use dose modulation, iterative reconstruction, and/or weight-based dosing when appropriate to reduce radiation dose to as low as reasonably achievable. Dictated by Sal Aguirre MD @ 05/17/2024 2:22:05 PM (Electronically Signed)
== END 2024-05-17 10:57 | disposition home or self-care (01) ==
LOC: CT 10:56
PROVIDERS: PCP Internal Medicine; Visit Provider Internal Medicine
DX: Z12.2 Encounter for screening for malignant neoplasm of respiratory organs (principal); M47.892 Other spondylosis, cervical region; Q67.0 Congenital facial asymmetry
CPT/HCPCS: 36415; 70491; 71271; 82565; Q9967

== ENCOUNTER 2024-07-14 11:06 | Outpatient (CLI) | payer BC, SELFPAY ==
--- OUTSIDE RECORDS SUMMARY | 2024-07-14 11:11 | XMS_ITS | Clinical Summary ---
Author Organization [facility] Address [address] [place] [address] Care Team Providers Care Care Assistant Name Role Phone Unavailable Primary Care Provider Unavailabl e Source Comments Patient records contain information from all sites at [facility]. For routine questions regarding patient records, call [phone] during business hours, M-F 8:00 AM - 5:00 PM Central Time. Record requests for emergency care only can be directed to [phone] at any time.[facility] Allergies No known active allergies Medications Medication Sig Dispensed Refills Start Date End Date Status cetirizine 10 mg capsule Active cholecalciferol, vitamin D3, (Vitamin D3) 10 mcg (400 unit) capsule Active omega 1-kmu-irk-fish oil (fish oil) 100-160-1,000 mg capsule Active venlafaxine XR (EFFEXOR-XR) 150 mg 24 hr capsule Active pantoprazole (PROTONIX) 40 mg EC tablet Take 1 tablet (40 mg total) by mouth every morning before breakfast. 30 tablet 2 02/03/2023 Active azaTHIOprine (IMURAN) 50 mg tabletIndications :Crohn's Disease (HCC),Colitis Ulcerative (HCC) Take 1 tablet (50 mg total) by mouth daily. 90 tablet 3 10/30/2023 Active azaTHIOprine (IMURAN) 50 mg tabletIndications :Crohn's Disease (HCC),Colitis Ulcerative (HCC) Take 1 tablet (50 mg total) by mouth daily. 30 tablet 3 11/14/2023 Active carvediloL (COREG) 12.5 mg tablet Take 1 tablet (12.5 mg total) by mouth 2 (two) times a day with meals. 60 tablet 3 11/14/2023 Active thiamine (VITAMIN B1) 100 mg tabletIndications :Unspecified Cirrhosis Of Liver (HCC),Ascites,Hep atitis Autoimmune (HCC) Take 1 tablet (100 mg total) by mouth daily. 30 tablet 3 11/14/2023 Active folic acid 1 mg tabletIndications :Unspecified Cirrhosis Of Liver (HCC),Ascites,Hep atitis Autoimmune (HCC) take one tablet by mouth one time daily 30 tablet 04/06/[address] tablet 06/23/2024 Discontinued (Therapy completed) polyethylene glycol-electrolyt es (GoLYTELY) 236-22.74-6.74 -5.86 gram solution Drink 1st portion of prep at 6 PM the evening before. 2nd portion must be started 3 hours before and finished 2 hours prior to report time 4000 mL 02/03/2023 06/23/2024 Discontinued (Therapy completed) traZODone (DESYREL) 50 mg tablet TAKE ONE TABLET BY MOUTH ONE TIME DAILY at bedtime as needed for insomnia.* 06/01/2023 06/23/2024 Discontinued (Therapy completed) doxycycline hyclate (VIBRAMYCIN) 100 mg capsule TAKE ONE CAPSULE BY MOUTH TWICE DAILY* 04/15/2023 06/23/2024 Discontinued (Therapy completed) Encounters Date Type Department Care Team Description 06/23/2024 2:15 PM CDT Comprehensive Visit Department of Dermatology in [place], [place] [address] [place] [address] Radha Gomez M.D. Alavi, Afsaneh, M.D. 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 Hepatitis Autoimmune (HCC) Discharge Disposition: Home or Self Care from Last 3 Months Family History Medical [...] drink = 0.6 oz pur e alcohol) [facility] Utilities Answer Date Recorded In the past 12 months has e [employer], gas, oil, or water [employer] threatened to shut off services in your home? No 06/23/2024 Humiliation, Afraid, Rape, and Kick questionnair e [...] often do you attend chur ch or cheondoism services? 1 to 4 times per year 01/30/2023 Do you belong to any clubs o r organizations such as worship groups, unions, fraternal or athletic groups, or [...] care, and heating? Not very hard 01/30/2023 [facility] - Occupational [...] to strenuous exercise (like a brisk walk)? 4 days 06/23/2024 On average, how many minutes do you engage in exercise at this level? 30 min 06/23/2024 Hunger Vital Sign Answer Date Recorded Within the past 12 months, y ou worried that your food would run out before you got the money to buy more. Never true 06/23/20 24 Within the past 12 months, t he food you bought just didn't last and you didn't have money to get more. Never true 06/23/2024 PRAPARE - Transportation Answer Date Re corded In the past 12 months, has l ack of transportation kept you from medical appointments or from getting medications? No 06/10 In the past 12 months, has l ack of transportation kept you from meetings, work, or from getting things needed for daily living? No 06/23/2024 Nutrition Answer Date Recorded On average, how many serving s of fruits and vegetables do you eat per day (serving size is equal to 1 cup or approximately the size of a tennis ball)? 3-5 06/23/2024 Dental Answer Date Recorded Dental: Regular Dentist No 01/31/20 Employment Answer Date Recorded Employment status Retired 06/23/2024 Housing Stability Answer Date Recorded What is your living situation today? I have a [facility] place to live 06/23/2024 Education Answer Date Recorded What is the [...] Sign Reading Time Taken Comments Blood Pressure 115/55 06/23/2024 9:30 AM CDT Pulse 70 06/23/2024 9:36 AM CDT Temperature 36.7 ??C (98.1 ??F) 06/23/2024 9:06 AM CD T Respiratory Rate 13 06/23/2024 9:36 AM CDT Oxygen Saturation 97% 06/23/2024 9:36 AM CDT Inhaled Oxygen Concentration - - Weight 72.6 kg (160 lb) 05/01/2023 6:56 AM CDT Height 167.6 cm (5' 6) 06/23/2024 7:35 AM CDT Body Mass Index 25.84 05/01/2023 6:56 AM CDT Plan of Treatment Health Maintenance Due Date Last Done Comments [...] Procedure Name Priority Date/Time Associated Diagnosis Comments SURGICAL PATHOLOGY Routine 06/23/2024 8: 56 AM CDT UPPER GI ENDOSCOPY Routine 06/23/2024 7: 55 AM CDT Hepatitis Autoimmune (HCC) EGD (ESOPHAGEALGASTRODUODENO SCOPY) Routine 06/23/2024 7:55 AM CDT Hepatitis Autoimmune (HCC) GASTROENTEROLOGY IMAGE EXAM Routine 06/23/2024 7:55 AM CDT COMPREHENSIVE METABOLIC PANEL, S/P Routine 03/31/2024 4:10 PM CDT Hepatitis Autoimmune (HCC) COLONOSCOPY Routine 05/01/2023 7:41 AM CDT Unspecified Cirrhosis Of Liver (HCC) BI BREAST SCREENING BILATERAL Routine 09/15/2001 12:00 AM DEALER ACCOUNTS INVESTIGATOR from Last 3 Months or Most Recently Relevant to Health Maintenance Results * Surgical Pathology (06/23/2024 8:56 AM CDT) 06/24/2024 10:19 AM CDT DTL Report electronically signed by Sarah Negro M.D. I verify that I have examined all relevant slides/materials for the specimen(s) and rendered or confirmed the diagnosis. 06/24/2024 10:19 AM CDT DTL Gross Description Received in formalin labeled with the patient's name, medical record number, and esophagus-gastroes ophageal junction are three paletan-pink irregular soft tissues, ranging from 0.2-0.3 cm in greatest dimension. Specimens are submitted en toto in cassette A1. Viv BAILEY. 06/24/2024 10:19 AM CDT DTL Interpretation FINAL DIAGNOSIS A. Esophagus, Gastroesophageal junction (esophagus), endoscopic biopsy: ??Squamous esophageal mucosa with mild reactive changes and focal intraepithelial eosinophils (up to 3 eosinophil per high-power field). ??Inflamed cardia-type mucosa with foveolar hyperplasia. ??Negative for intestinal metaplasia and dysplasia. Digital imaging was used in the diagnostic assessment of this case. 06/24/2024 10:19 AM CDT DTL Biopsy (Esophagus) 06/23/2024 8:56 AM CDT Kristy Gonzalez., M.S. LAB SURG P ATH ORDERABLES Performing Organization Address City/State/[facility] Co de Phone Number [facility] [address] [place] [address], [facility] DTL [address] [place] [address] * Upper GI Endoscopy (06/23/2024 7:55 AM CDT) 06/23/2024 7:55 AM CDT Impressions [facility] - 06/23/2024 9:05 AM CDT Post-op Diagnoses: ? - Esophageal mucosal changes suspicious for short-segment Griggs's ? esophagus, classified as Griggs's stage C0-M1 per [place] criteria. ? Biopsied. ? - 3 cm hiatal hernia. ? - No evidence of esophageal varices. ? - Mild portal hypertensive gastropathy. ? - Mild portal hypertensive duodenopathy. Narrative [facility] - 06/23/2024 9:05 AM CDT Gonda 9 GI GI Patient Name: Gloria Lincoln Date of : 1960 Age: 64 Procedure Date: 06/23/2024 Procedure: ? Upper GI endoscopy Providers: ? YUDI Lopez, Serenity Apodaca (Fellow) Referring Provider: ?Radha Gomez MD Pre-op Diagnoses: ?Portal hypertension with suspected esophageal ? varices, Esophageal varices (Last EGD on 04/2023 with ? grade II EV). Currently on Beta-blockers. Recommendation: ? - Discharge patient to home (ambulatory). ? - Await pathology results. ? - Return to referring physician as previously scheduled. Findings: ? There were esophageal mucosal changes suspicious for short-segment ? Griggs's esophagus, classified as Griggs's stage C0-M1 per [place] ? criteria present at the gastroesophageal junction (between 36 and 37 cm ? from the incisors). The maximum longitudinal extent of these mucosal ? changes was 1 cm in length. Mucosa was biopsied with a cold forceps for ? histology. No evidence of esophageal varices. ? A 3 cm hiatal hernia was present between 37 cm and 40 cm from the ? incisors. ? Mild portal hypertensive gastropathy was found in the entire examined ? stomach. ? Patchy mildly erythematous mucosa without active bleeding and with no ? stigmata of bleeding was found in the entire duodenum consistent with ? mild portal hypertensive duodenopathy. Procedural Details: ? The patient was seen, evaluated, history reviewed, airway and heart-lung ? exams were performed by licensed provider and were satisfactory for ? planned level of sedation care. ? The risks, benefits and alternatives for the procedure and sedation were ? discussed and informed consent was obtained. A procedural pause was ? conducted in the presence of assisting personnel to verify the correct ? patient identity and procedure to be performed. Throughout the ? procedure, the patient's blood pressure, pulse, and oxygen saturations ? were monitored continuously. The Gastroscope was introduced under direct ? vision through the mouth, and advanced to the second part of duodenum. ? The upper GI endoscopy was accomplished without difficulty. The patient ? tolerated the procedure well. Estimated Blood Loss: ?Minimal. Complications: ? No immediate complications. Sedation: ? Moderate (conscious) sedation was administered by the nurse and ? supervised by the endoscopist. The following parameters were monitored: ? oxygen saturation, heart rate, blood pressure, respiratory rate, EKG, ? adequacy of pulmonary ventilation, and response to care. Total physician ? intraservice time was 15 minutes. Attending Participation: I personally performed the entire procedure. YUDI Lopez 06/23/2024 9:05:21 AM This report has been signed electronically. Number of Addenda: 0 Radha Gomez M.D. GI PROCEDURE OR DERABLES Performing Organization Address [facility] Co de Phone Number [employer] NA * Upper GI endoscopy-Gastroenterology Image Exam (06/23/2024 7:55 AM CDT) 06/23/2024 7:55 AM CDT Narrative [facility] - 06/23/2024 9:11 AM CDT This order has been created and auto-finalized to support the import of images acquired without order. The clinical documentation to support these images can be found on the encounter that produced images. Provider Not In System IMG NON RAD IMAGI NG PROCEDURES Performing Organization Address [facility] de Phone Number [facility] NA * (ABNORMAL) Comprehensive Metabolic Panel (03/31/2024 4:10 [...] Radha Gomez M.D. LAB BLOOD ADD-O N [facility] [address] [place] [address], [facility] [address] [place] [address] * BI Breast Screening Bilateral (09/15/2001 12:00 AM DEALER ACCOUNTS INVESTIGATOR) Anatomical Region Laterality Modality Breast Bilateral Mammography 09/15/2001 Narrative 09/15/2001 12:00 AM DEALER ACCOUNTS INVESTIGATOR 15-Sep-2001 00:00:00 ??Exam: Mammo Screen Bilat Indications: ?? ORIGINAL REPORT - 15-Sep-2001 00:00:00 This [facility] ([facility]) exam was historically loaded. *-*-*-*-* SEE SCANNED REPORT *-*-*-*-* [facility] REPORT Electronically signed by: ?? Tutu Reagan MD 15-Sep-2001 00:00 Procedure Note Provider, Historical - 02/13/2018 15-Sep-2001 00:00:00 Exam: Mammo Screen Bilat Indications: ORIGINAL REPORT - 15-Sep-2001 00:00:00 This [facility] ([facility]) exam was historically loaded. *-*-*-*-* SEE SCANNED REPORT *-*-*-*-* [facility] X-RAY REPORT Electronically signed by: Tutu Reagan MD 15-Sep-2001 00:00 Historical Provider IMG BI PROCEDURES from Last 3 Months or Most Recently Relevant to Health Maintenance
--- OUTSIDE RECORDS SUMMARY | 2024-07-14 11:11 | XMS_ITS | Encounter Summary ---
Author Organization [facility] Address [address] [place] [address] Care Team Providers Care Dealer Account Manager Name Role Phone Unavailable Primary Care Provider Unavailabl e Reason for Referral * Outpatient (Routine) - Closed Specialty Diagnoses / Procedures Referred By Contac t Referred To Contact Diagnoses Hepatitis Autoimmune (HCC) Procedures EGD (EsophagealGastroDuodenoscopy ) Radha Gomez M.D. [address] [place] [phone] [facility] Referral ID Status Reason Start Date Expiration Date Visits Re quested Visits Authorized [id number] Closed 06/23/2023 06/22/2024 1 1 Reason for Visit * Outpatient (Routine) - Closed Specialty Diagnoses / Procedures Referred By Contac t Referred To Contact Diagnoses Hepatitis Autoimmune (HCC) Procedures EGD (EsophagealGastroDuodenoscopy ) Radha Gomez M.D. [address] [place] [phone] [facility] Referral ID Status Reason Start Date Expiration Date Visits Re quested Visits Authorized [id number] Closed 06/23/2023 06/22/2024 1 1 Encounter Details Date Type Department Care Team (Latest Contact Info) Description 06/23/2024 7:24 AM CDT - 06/23/2024 11:59 PM CDT Hospital Encounter Division of Gastroenterology in [place], [place] [address] [place] [phone] Radha Gomez M.D. 200 [place] [address] Hepatitis Autoimmune (HCC) Discharge Disposition: Home or Self Care Social History Tobacco Use Types Packs/Day Years Used Date Smoking Tobacco: Every Day Cigarettes 0.8 40 Started: 11/10/1979; Last attempted to quit: 11/10/2000 Passive Smoke Exposure: Current Smokeless Tobacco: Never Alcohol Use Standard Drinks/Week Comments Yes 8 (1 standard drink = 0.6 oz pur e alcohol) [facility] Utilities Answer Date Recorded In the past 12 months has e electric, gas, oil, or water company threatened to shut off services in your [...] often do you attend chur ch or yarsanism services? 1 to 4 times per year 01/30/2023 Do you belong to any clubs o r organizations such as confucianist groups, unions, fraternal or athletic groups, or [...] care, and heating? Not very hard 01/30/2023 [facility] [place] of Occupat ional Health - Occupational Stress [...] money to buy more. Never true 06/23/20 Within the past 12 months, t he [...] your living situation today? I have a [facility] place to live 06/23/2024 Education Answer Date [...] PM CDT documented as of this encounter Last Filed Vital Signs Vital Sign Reading Time Taken Comments Blood Pressure 115/55 06/23/2024 9:30 AM CDT Pulse 70 06/23/2024 9:36 AM CDT Temperature 36.7 ??C (98.1 ??F) 06/23/2024 9:06 AM CD T Respiratory Rate 13 06/23/2024 9:36 AM CDT Oxygen Saturation 97% 06/23/2024 9:36 AM CDT Inhaled Oxygen Concentration - - Weight - - Height 167.6 cm (5' 6) 06/23/2024 7:35 AM CDT Body Mass Index - - documented in this encounter Medications at Time of Discharge Medication Sig Dispensed Refills Start Date End Date azaTHIOprine (IMURAN) 50 mg tabletIndications:Crohn' s Disease (HCC),Colitis Ulcerative (HCC) Take 1 tablet (50 mg total) by mouth daily. 90 tablet 3 10/30/2023 carvediloL (COREG) 12.5 mg tablet Take 1 tablet (12.5 mg total) by mouth 2 (two) times a day with meals. 60 tablet 3 11/14/2023 cetirizine 10 mg capsule cholecalciferol, vitamin D3, (Vitamin D3) 10 mcg (400 unit) capsule folic acid 1 mg tabletIndications:Unspec ified Cirrhosis Of Liver (HCC),Ascites,Hepatitis Autoimmune (HCC) take one tablet by mouth one time daily 30 tablet 04/06/2024 omega 0-kqq-wep-fish oil (fish oil) 100-160-1,000 mg capsule pantoprazole (PROTONIX) 40 mg EC tablet Take 1 tablet (40 mg total) by mouth every morning before breakfast. 30 tablet 2 02/03/2023 thiamine (VITAMIN B1) 100 mg tabletIndications:Unspec ified Cirrhosis Of Liver (HCC),Ascites,Hepatitis Autoimmune (HCC) Take 1 tablet (100 mg total) by mouth daily. 30 tablet 3 11/14/2023 venlafaxine XR (EFFEXOR-XR) 150 mg 24 hr capsule azaTHIOprine (IMURAN) 50 mg tabletIndications:Crohn' s Disease (HCC),Colitis Ulcerative (HCC) Take 1 tablet (50 mg total) by mouth daily. 30 tablet 3 11/14/2023 documented as of this encounter H&P Notes * Kristy Zarco M.B.B.S., M.S. - 06/23/2024 8:00 AM CDT ASSESSMENT / PLAN Patient Name: Gloria Lincoln Upper Endoscopy Procedure Department : DIVISION OF GASTROENTEROLOGY IN [place], [place] SUBJECTIVE Past Medical History: Diagnosis Date Cirrhosis Nonalcoholic (HCC) Hepatitis 12/19/22 Liver Disease 12/16/22 Polyp Colon Past Surgical History: Procedure Laterality Date TONSILLECTOMY TOTAL HYSTERECTOMY TUBAL LIGATION Social History Socioeconomic History Marital status: Highest education level: Associate degree: occupational, technical, or vocational program Tobacco Use Smoking status: Every Day Current packs/day: 0.00 Average packs/day: 0.8 packs/day for 40.0 years (30.0 ttl pk-yrs) Types: Cigarettes Start date: 11/10/1979 Last attempt to quit: 11/10/2000 Years since quittin.6 Passive exposure: Current Smokeless tobacco: Never Vaping Use Vaping status: never used Substance and Sexual Activity Alcohol use: Yes Alcohol/week: 8.0 standard drinks of alcohol Types: 8 Glasses of wine per week Drug use: Never Sexual activity: Not Currently Partners: Male control/protection: None Comment: Hysterectomy OBJECTIVE Pain Score: 0 - No pain Consents Obtained: written The benefits, risks and alternatives of sedation or anesthesia, as well as the names, roles, and responsibilities of the healthcare team members, were discussed with the patient and/or decision maker: yes Procedure / Reason for visit: The planned surgery or procedure was verified with the patient and/ordecision maker The following portions of the patient's history were reviewed and updated as appropriate: allergies, current medications, family history, medical history, surgical history, social history and problemlist. yes Review of systems: pertinent ROS negative Mallampati: III - soft palate, base of uvula visible Heart: normal Lung: normal General / Constitutional: normal ASA physical exam: Class 1 - normal, healthy patient Patient seen, evaluated and approved for sedation Sedation plan: moderate sedation Baseline Behavior: Psychosocial (WDL): Within Defined Limits Abdominal Exam: Abdomen Inspection: Soft documented in this encounter Plan of Treatment Not on file documented as of this encounter Procedures Procedure Name Priority Date/Time Associated Diagnosis Comments SURGICAL PATHOLOGY Routine 06/23/2024 8: 56 AM CDT UPPER GI ENDOSCOPY Routine 06/23/2024 7: 55 AM CDT Hepatitis Autoimmune (HCC) EGD (ESOPHAGEALGASTRODU ODENOSCOPY) Routine 06/23/2024 7:55 AM CDT Hepatitis Autoimmune (HCC) documented in this encounter Results * Surgical Pathology (06/23/2024 8:56 AM [...] submitted en toto in cassette A1. Viv GUZMANE. 06/24/2024 10:19 AM CDT DTL Interpretation FINAL [...] Biopsy (Esophagus) 06/23/2024 8:56 AM CDT Kristy Phan, M.S. LAB SURG P ATH ORDERABLES [facility] [address] [place] [address], [facility] DTL [address] [place] [address] * Upper GI Endoscopy (06/23/2024 7:55 AM CDT) 06/23/2024 7:55 AM CDT Impressions [facility] - 06/23/2024 9:05 AM CDT Post-op Diagnoses: ? - Esophageal mucosal changes suspicious for short-segment Griggs's ? esophagus, classified as Griggs's stage C0-M1 per [place] criteria. ? Biopsied. ? - 3 cm hiatal hernia. ? - No evidence of esophageal varices. ? - Mild portal hypertensive gastropathy. ? - Mild portal hypertensive duodenopathy. Narrative [facility] - 06/23/2024 9:05 AM CDT Gonda 9 [...] esophagus, classified as Griggs's stage C0-M1 per [place] ? criteria present at the gastroesophageal junction [...] GI PROCEDURE OR DERABLES Performing Organization Address City/State/[facility] Co ar Phone Number [facility] documented in this encounter Visit Diagnoses Diagnosis Hepatitis Autoimmune (HCC) documented in this encounter Administered Medications Inactive Administered Medications - up to 3 most recent administrations Medication Order MAR Action Action Date Dose Rate Site fentaNYL injection (Sublimaze) intravenous, As needed, Starting on Fri06/23/24 at 0842, Intra-Op Given 06/23/2024 8:42 AM CDT 50 mcg fentaNYL injection (Sublimaze) intravenous, As needed, Starting on Fri06/23/24 at 0844, Intra-Op Given 06/23/2024 8:44 AM CDT 25 mcg fentaNYL injection (Sublimaze) intravenous, As needed, Starting on Fri06/23/24 at 0847, Intra-Op Given 06/23/2024 8:47 AM CDT 25 mcg fentaNYL injection (Sublimaze) intravenous, As needed, Starting on Fri06/23/24 at 0849, Intra-Op Given 06/23/2024 8:49 AM CDT 25 mcg midazolam (PF) injection (Versed) As needed, Starting on Fri06/23/24 at 0842, Intra-Op Given 06/23/2024 8:42 AM CDT 3 mg midazolam (PF) injection (Versed) As needed, Starting on Fri06/23/24 at 0844, Intra-Op Given 06/23/2024 8:44 AM CDT 1 mg midazolam (PF) injection (Versed) As needed, Starting on Fri06/23/24 at 0847, Intra-Op Given 06/23/2024 8:47 AM CDT 1 mg midazolam (PF) injection (Versed) As needed, Starting on Fri06/23/24 at 0849, Intra-Op Given 06/23/2024 8:49 AM CDT 1 mg sodium chloride 0.9 % injection As needed, Starting on Fri06/23/24 at 0842, Intra-Op Given 06/23/2024 8:42 AM CDT 5 mL sodium chloride 0.9 % injection As needed, Starting on Fri06/23/24 at 0844, Intra-Op Given 06/23/2024 8:44 AM CDT 5 mL sodium chloride 0.9 % injection As needed, Starting on Fri06/23/24 at 0847, Intra-Op Given 06/23/2024 8:47 AM CDT 5 mL sodium chloride 0.9 % injection As needed, Starting on Fri06/23/24 at 0849, Intra-Op Given 06/23/2024 8:49 AM CDT 5 mL documented in this encounter
--- OUTSIDE RECORDS SUMMARY | 2024-07-14 11:11 | XMS_ITS | Referral Summary ---
Author Organization [facility] Address [address] [place] [id number] Care Team Providers Care Depot Agent Name Role Phone Unavailable Primary Care Provider Unavailabl e Source Comments Patient records contain information from all sites at [facility]. For routine questions regarding patient records, call [phone] during business hours, M-F 8:00 AM - 5:00 PM Central Time. Record requests for emergency care only can be directed to [phone] at any time.[facility] Encounters Date Type Department Care Team Description 06/23/2024 7:55 AM CDT Ancillary Procedure Department of Gastroenterology 06/23/2024 2:15 PM CDT Comprehensive Visit Department of Dermatology in [place], [place] [address] [place] [phone] Radha Gomez M.D. Alavi, Afsaneh, M.D. 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 Hepatitis Autoimmune (HCC) Discharge Disposition: Home or Self Care from Last 3 Months Allergies No known active allergies Medications Medication Sig Dispensed Refills Start Date End Date Status cetirizine 10 mg capsule Active cholecalciferol, vitamin D3, (Vitamin D3) 10 mcg (400 unit) capsule Active omega 9-nub-zyf-fish oil (fish oil) 100-160-1,000 mg capsule Active [...] TWICE DAILY* 04/15/2023 06/23/2024 Discontinued (Therapy completed) Social History Tobacco Use Types Packs/Day Years Used Date Smoking Tobacco: Every Day Cigarettes 0.8 40 Started: 11/10/1979; Last attempted to quit: 11/10/2000 Passive Smoke Exposure: Current Smokeless Tobacco: Never Tobacco Cessation:Ready to Q uit: Not Asked; Counseling Given: Not Answered Alcohol Use Standard Drinks/Week Comments Yes 8 (1 standard drink = 0.6 oz pur e alcohol) [facility] All At Homeities Answer Date Recorded In the past 12 months has e [employer], gas, oil, or water [employer] threatened to shut off services in your [...] week 01/30/2023 How often do you attend [facility] or mu-ism services? 1 to 4 times per year 01/30/2023 Do you belong to any clubs o r organizations such as mormonism groups, unions, fraternal or athletic groups, or [...] care, and heating? Not very hard 01/30/2023 [facility] of Occupat ional Health - Occupational Stress [...] your living situation today? [facility] 06/23/2024 Education Answer Date [...] 05/01/2023 6:56 AM CDT Plan of Treatment Not on file Procedures Procedure Name Priority Date/Time Associated Diagnosis [...] BREAST SCREENING BILATERAL Routine 09/15/2001 12:00 AM TRUCK LO[employer]ANE from Last 3 Months or Most Recently [...] Phan, M.S. LAB SURG P ATH ORDERABLES Performing Organization Address City/State/[facility] Co de Phone Number [facility] [address] [place] [address], [facility] [address] [place] [address] * Upper GI Endoscopy (06/23/2024 7:55 AM CDT) 06/23/2024 7:55 AM CDT Impressions [facility] - 06/23/2024 9:05 AM CDT Post-op Diagnoses: ? 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 ? Biopsied. ? - 3 cm hiatal hernia. ? - No evidence of esophageal varices. ? - Mild portal hypertensive gastropathy. ? - Mild portal hypertensive duodenopathy. Narrative [facility] - 06/23/2024 9:05 AM CDT Gonda 9 [...] esophagus, classified as Griggs's stage C0-M1 per Easton ? criteria present at the gastroesophageal junction [...] Radha Gomez M.D. GI PROCEDURE OR DERABLES [facility] NA * Upper GI endoscopy-Gastroenterology Image Exam [...] RAD IMAGI NG PROCEDURES Performing Organization Address City/[facility]/ZIP Co de Phone Number [facility] NA * (ABNORMAL) Comprehensive Metabolic Panel (03/31/2024 [...] M.D. LAB BLOOD ADD-O N [facility] [address] [place] [address], [place] [facility] [address] [place] [address] * BI Breast Screening Bilateral (09/15/2001 12:00 AM TRUCK [employer]) Anatomical Region Laterality Modality Breast Bilateral Mammography 09/15/2001 Narrative 09/15/2001 12:00 AM TRUCK [employer] 15-Sep-2001 00:00:00 ??Exam: Mammo Screen Bilat Indications: ?? ORIGINAL REPORT - 15-Sep-2001 00:00:00 This [facility]) exam was historically loaded. *-*-*-*-* SEE SCANNED REPORT *-*-*-*-* FOR[facility]LY [facility], [facility]1983 X-RAY REPORT Electronically signed by: ?? Tutu Reagan MD 15-Sep-2001 00:00 Procedure Note Provider, Historical - 02/13/2018 15-Sep-2001 00:00:00 Exam: Mammo Screen Bilat Indications: ORIGINAL REPORT - 15-Sep-2001 00:00:00 This [facility]) exam was historically loaded. *-*-*-*-* SEE SCANNED REPORT *-*-*-*-* FOR[facility]LY [facility], [facility]1983 X-RAY REPORT Electronically signed by: Tutu Reagan MD 15-Sep-2001 00:00 Historical Provider IMG BI PROCEDURES from Last 3 Months or Most Recently Relevant to Health Maintenance
--- OUTSIDE RECORDS SUMMARY | 2024-07-14 11:11 | XMS_ITS | Encounter Summary ---
Author Organization [facility] Address [address] [place] [address] Care Team Providers Care Bath Tester Name Role Phone Unavailable Primary Care Provider Unavailabl e Encounter Details Date Type Department Care Team (Latest Contact Info) Description 06/23/2024 7:55 AM CDT Ancillary Procedure Department of Gastroenterology Social History Tobacco Use Types Packs/Day Years Used Date Smoking Tobacco: Every Day Cigarettes 0.8 40 Started: 11/10/1979; Last attempted to quit: 11/10/2000 Passive Smoke Exposure: Current Smokeless Tobacco: Never Alcohol Use Standard Drinks/Week Comments Yes 8 (1 standard drink = 0.6 oz pur e alcohol) [facility] Utilities Answer Date Recorded In the past 12 months has e [employer], gas, oil, or water [employer] threatened to shut off services in your [...] often do you attend chur ch or buddhist services? 1 to 4 times per year 01/30/2023 Do you belong to any clubs o r organizations such as muslim groups, unions, fraternal or athletic groups, or [...] care, and heating? Not very hard 01/30/2023 [facility] [place] of Occupat ional Health - Occupational Stress [...] your living situation today? I have a [facility] place to live 06/23/2024 Education Answer Date [...] as of this encounter Plan of Treatment Not on file documented as of this encounter Procedures Procedure Name Priority Date/Time Associated Diagnosis Comments GASTROENTEROLOGY IMAGE EXAM Routine 06/23/2024 7:55 AM CDT documented in this encounter Results * Upper GI endoscopy-Gastroenterology Image Exam (06/23/2024 7:55 AM CDT) 06/23/2024 7:55 AM CDT Narrative [facility] - 06/23/2024 9:11 AM CDT This order has been created and auto-finalized to support the import of images acquired without order. The clinical documentation to support these images can be found on the encounter that produced images. Provider Not In System IMG NON RAD IMAGI NG PROCEDURES [facility] NA documented in this encounter Visit Diagnoses Not on filedocumented in this encounter
--- OUTSIDE RECORDS SUMMARY | 2024-07-14 11:11 | XMS_ITS | Encounter Summary ---
Author Organization [facility] Address [address] [place] [address] Care Team Providers Care Waterproof Material Folder Name Role Phone Unavailable Primary Care Provider Unavailabl e Reason for Visit * Outpatient (Routine) - Closed Specialty Diagnoses / Procedures Referred By Bharat broderick Referred To Contact Dermatology Diagnoses Hepatitis Autoimmune (HCC) Radha Gomez M.D. [address] [place] [phone] [facility] Referral ID Status Reason Start Date Expiration Date Visits Re quested Visits Authorized [id number] Closed 04/01/2024 10/01/2025 1 1 Encounter Details Date Type Department Care Team (Latest Contact Info) Description 06/23/2024 2:15 PM CDT Comprehensive Visit Department of Dermatology in [place], [place] [address] [place] [phone] Radha Gomez M.D. [address] [place] [phone] Agnieszka Mccord M.D. 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); Hepatitis Autoimmune (HCC); Screening Examination Skin Cancer; Dermatoheliosis; Nevi Multiple; Keratosis Seborrheic; Angioma Lowe Discharge Disposition: Home or Self Care Social History Tobacco Use Types Packs/Day Years Used Date Smoking Tobacco: Every Day Cigarettes 0.8 40 Started: 11/10/1979; Last attempted to quit: 11/10/2000 Passive Smoke Exposure: Current Smokeless Tobacco: Never Alcohol Use Standard Drinks/Week Comments Yes 8 (1 standard drink = 0.6 oz pur e alcohol) [facility] Utilities Answer Date Recorded In the past 12 months has th e electric, gas, oil, or water company [...] any clubs o r organizations such as mandaen groups, unions, fraternal or athletic groups, or [...] care, and heating? Not very hard 01/30/[address] [facility] of Occupat ional Health - Occupational Stress [...] your living situation today? I have a [facility] place to live 06/23/2024 Education Answer [...] PM CDT documented as of this encounter Consult Notes * Agnieszka Mccord M.D. - 06/23/2024 2:15 PM CDT REFERRED BY Radha Gomez M.D. CHIEF COMPLAINT/REASON FOR VISIT Immunosuppressed state, Imuran for autoimmune hepatitis HISTORY OF PRESENT ILLNESS Ms. Gloria Lincoln is a pleasant 64 y.o. female who presents today for a full skin cancer screening examination. The patient has a history of autoimmune hepatitis and is on chronic immunosuppressive therapy with Imuran. The patient is new to [facility]. Today, she reports no specific cutaneous concerns. The patient comes to us from [place], [place]. She reports she has never seen a screen stretcher in the past. No Known Allergies PAST DERMATOLOGIC HISTORY Negative for skin cancer FAMILY DERMATOLOGIC HISTORY Negative for skin cancer PHYSICAL EXAM General: Awake, alert, in no acute distress, and with appropriate affect. Eyes: No scleral injection or icterus. No eyelid abnormalities. Lymph: No lower extremity edema. Skin: I have examined the scalp, face, neck, chest, abdomen, back, buttocks, bilateral upper extremities, and bilateral lower extremities. Mohan skin type II. There is dermatoheliosis in sun-exposed areas. Scattered light brown to dark brown, symmetric, uniform macules and thin papules on thetrunk, and extremities with reassuring features under dermoscopy. Multiple pink to brown waxy, stuck-on appearing papules and plaques scattered throughout the exam, consistent with seborrheic keratoses. Various 1-2 mm red to purple dome shaped papules noted on the trunk, upper extremities, and lower extremities consistent with lowe angiomas. She has multiple superficial ulcers on her bilateral d orsal hands. IMPRESSION/REPORT/PLAN #1 Skin cancer screening examination #2 Immunosuppressed state, Imuran for autoimmune hepatitis #3 Dermatoheliosis Overall, patient reports feeling well and is stable on immune suppressant therapy. Reviewed increased risk of skin cancer secondary to immunosuppression. Sun protection and sun avoidance were reviewed with the patient. Educational materials were provided regarding skin self-examination, the warningsigns and symptoms of skin cancer, and the proper use of sunscreens. I would recommend a full skin cancer screening examination with an appropriately trained clinician every year or sooner for any concerns. 1. Use SPF 30 or greater sunscreen with broad-spectrum coverage, we recommend looking for zinc ortitanium oxide in the ingredients. 2. Reapply every 2 hours or after exiting the water. 3. Use a daily sunscreen which can often be found in a daily moisturizer or foundation. 4. A shot-glass amount of sunscreen is needed to attain proper coverage for one full-body application. 5. A broad brimmed hat and UPF clothing (ie: Coolibar) is a great way to protect your skin from thesun. #4 Superficial ulcer, bilateral dorsal hands As these are new lesions, I spoke to the patient about monitoring these and should symptoms or changes develop related to this condition, I would recommend a return visit for reassessment. #5 Seborrheic keratoses #6 Lowe angiomas The benign nature of the skin lesion(s) was discussed with the patient. No treatment is required. Irecommend continued observation. Should symptoms or changes develop related to this condition, I would recommend a return visit for reassessment. #7 Benign-appearing nevi The ABCDE criteria for melanoma was reviewed with the patient. I recommend continued sun protection, self-skin examinations, and observation. Should any of the patient's nevi change in size, color, texture, or shape or develop symptoms such as itching or bleeding, I recommend an immediate return visit for reassessment. PATIENT EDUCATION Ready to learn. No apparent learning barriers were identified. Learning preferences include listening. Explained diagnosis and treatment plan; patient/guardian of patient expressed understanding of the content. This document serves as a record of services personally performed by Agnieszka Mccord MD. It was created on their behalf by Trinity Winston, a trained biomedical field service engineer. The creation of this record is based on the scribe remotely listening to the visit and the provider's statements to them. This document has been checked and approved by the attending provider. I personally performed the services described in this documentation, as scribed in my presence, andit is both accurate and complete. Scribed for Agnieszka Mccord M.D. by Trinity Winston, on 06/23/2024, 2:11 PM CDT. documented in this encounter Plan of Treatment Not on file documented as of this encounter Visit Diagnoses Diagnosis Immunodeficiency Due To Drugs (HCC)- Primary Hepatitis Autoimmune (HCC) Screening Examination Skin Cancer Dermatoheliosis Nevi Multiple Keratosis Seborrheic Angioma Lowe documented in this encounter
--- OUTSIDE RECORDS SUMMARY | 2024-07-14 11:11 | XMS_ITS ---
Author Organization [facility] Address [address] [place] [address] Care Team Providers Care Professor Of Criminal Justice Name Role Phone Unavailable Unavailable Unavailable Surgery Details Not on file Complications Check Surgery Details section. Procedure Estimated Blood Loss Check Surgery Details section. Procedure Findings Check Surgery Details section. Procedure Specimens Taken Check Surgery Details section.
--- OUTSIDE RECORDS SUMMARY | 2024-07-14 11:12 | XMS_ITS | Encounter Summary ---
Author Organization [facility] Address [address] [place] [phone] Care Team Providers Care Grain Cleaner Name Role Phone Unavailable Primary Care Provider Unavailabl e Reason for Visit * Reason Comments Med Refill Encounter Details Date Type Department Care Team ([facility] st Contact Info) Description 04/04/2024 Refill Division of Gastroenterology in [place], [place] [address] [place] [phone] Radha Gomez M.D. [address] [place] [phone] Med Refill Social History Tobacco Use Types [...] How often do you attend chur or islam services? 1 to 4 times per year 01/30/2023 Do you belong to any clubs o r organizations such as zoroastrianism groups, unions, fraternal or athletic groups, or [...] care, and heating? Not very hard 01/30/2023 [facility] of Occupat ional Health - Occupational Stress [...] place to sleep or slept in a penitentiary (including now)? No 01/30/2023 Nutrition Answer Date [...]
--- NOTE | 2024-07-14 11:30 | CRLHL7_ITS ---
For Patients: As a result of the Century Cures Act, medical imaging exams and procedure reports are released immediately into your electronic medical record. You may view this report before your referring provider. If you have questions, please contact your health care provider. BILATERAL SCREENING MAMMOGRAM WITH COMPUTER-AIDED DETECTION AND TOMOSYNTHESIS TECHNIQUE: CC and MLO views were obtained. These mammographic images have been obtained using full-field digital technique. These mammographic images were interpreted with the benefit of computer-aided detection. Breast Tomosynthesis was used in this interpretation. COMPARISON FILM: 03/25/22, 05/27/19, 01/06/18. FINDINGS: The breasts are heterogeneously dense, which may obscure small masses IMPRESSION: There is no radiographic evidence for malignancy. ASSESSMENT: BI-RADS Category 1: Negative RECOMMENDATION: Routine screening mammogram in 1 year. A lay language report of this examination will be provided to the patient. Tien Stout M.D. Diagnostic Radiologist [email or web address] LIZZETH/Dictated by: Tien Stout MD @ 07/14/2024 12:15:00 PM (Electronically Signed)
== END 2024-07-14 11:07 | disposition home or self-care (01) ==
LOC: MAMMO 11:09
PROVIDERS: PCP Internal Medicine; Visit Provider Internal Medicine
DX: Z12.31 Encounter for screening mammogram for malignant neoplasm of breast (principal); R92.2 Inconclusive mammogram
CPT/HCPCS: 77063; 77067

== ENCOUNTER 2025-08-12 10:36 | Outpatient (CLI) | payer BC, SELFPAY | END 2025-08-12 10:37 | disposition home or self-care (01) | LOC: NFLDREF 08-20 04:25 | PROVIDERS: PCP Internal Medicine; Referring Provider Internal Medicine; Visit Provider Internal Medicine | DX: E78.5 Hyperlipidemia, unspecified (principal); R30.9 Painful micturition, unspecified; R31.9 Hematuria, unspecified | CPT/HCPCS: 80061; 87086 ==

== ENCOUNTER 2025-09-05 13:56 | Outpatient (CLI) | payer BC, SELFPAY ==
--- NOTE | 2025-09-05 14:00 | CRLHL7_ITS ---
For Patients: As a result of the Century Cures Act, medical imaging exams and procedure reports are released immediately into your electronic medical record. You may view this report before your referring provider. If you have questions, please contact your health care provider. INDICATION: Lung cancer screening. History of smoking. High risk patient with greater than 20 pack-year smoking history. TECHNIQUE: Low-dose lung cancer screening non-contrast CT chest. Dose reduction techniques were used. COMPARISON: 05/17/2024 FINDINGS: NODULES: 2 millimeter nodule posterior right lung, , unchanged. Additional 2 millimeter nodule left upper lobe, 39. 3 millimeter nodule left upper lobe adjacent to the fissure, unchanged. 3/33. 2 millimeter nodule in the periphery of the lingula, . LUNGS AND PLEURA: Emphysema. MEDIASTINUM: Similar sub cm lymph nodes. CORONARY ARTERY CALCIFICATION: Mild. LIMITED UPPER ABDOMEN: Sub cm cyst within the liver. MUSCULOSKELETAL: Chronic right posterolateral 10th rib fracture. IMPRESSION: Small bilateral nodules measure 3 millimeters or less. LUNG-RADS CATEGORY: 2: Benign. RADIOLOGIST RECOMMENDATION: Continue annual screening, if eligible, with low-dose CT chest in 12 months. Please note that all CT scans at this facility use dose modulation, iterative reconstruction, and/or weight-based dosing when appropriate to reduce radiation dose to as low as reasonably achievable. Dictated by Tien Stout MD @ 09/05/2025 2:50:25 PM (Electronically Signed)
== END 2025-09-05 13:57 | disposition home or self-care (01) ==
LOC: CT 13:57
PROVIDERS: PCP Internal Medicine; Visit Provider Internal Medicine
DX: Z12.2 Encounter for screening for malignant neoplasm of respiratory organs (principal); R91.8 Other nonspecific abnormal finding of lung field; F17.210 Nicotine dependence, cigarettes, uncomplicated
CPT/HCPCS: 71271